=== PATIENT | male | born 2000 | race Caucasian/White ===

== ENCOUNTER 2021-01-25 12:53 | Emergency (ER) | payer OTHER ==
[2021-01-25] MEDS ORDERED: VISTARIL25 MG PO (14:36)
[2021-01-25] MEDS ORDERED: AQUAPHOR ITCH R28 GM TOP (14:36)
[2021-01-25] MEDS ORDERED: MEDROL 4MG DOSEP4 MG PO (14:36)
== END 2021-01-25 14:49 | disposition home or self-care (01) ==
LOC: FER 12:53
DX: L30.9 Dermatitis, unspecified (principal); F17.290 Nicotine dependence, other tobacco product, uncomplicated
CPT/HCPCS: 99282